=== PATIENT | male | born 1980 | race Caucasian/White ===

== ENCOUNTER 2023-03-22 14:52 | Emergency (ER) | payer MEDICAID, SELFPAY ==
[2023-03-22 15:01] VITALS: BP 127/87; BP 132/101; PULSE 103; PULSE 98; RESP 18; TEMP 36.4; O2SAT 98; O2SAT 99; BMI 27.7
--- NOTE | 2023-03-22 15:08 | PC.NURSE ---
security at bedside doing pt place change roof bolter. pt belongs placed in decon.
--- NOTE | 2023-03-22 15:11 | PC.NURSE ---
security at bedside. pt refusing chnage over.
--- NOTE | 2023-03-22 15:13 | PC.NURSE ---
provider at bedside discussing pt care.
--- NOTE | 2023-03-22 15:15 | ED_ITS ---
HPI - Overdose General Chief Complaint: Overdose Stated Complaint: OD,NARCAN GIVEN W/GOOD RESULT PER EMS Time Seen by Provider: 03/22/23 15:11 Source: patient and family Mode of arrival: EMS Limitations: no limitations History of Present Illness HPI Narrative: Patient comes to the emergency room after accidentally overdosing. Patient states that he was at home, took a tablet of Percocet, he accidentally overdose. Patient was found by his , called EMS, they gave him 2 mg IM of Narcan, patient responded immediately. Patient arrives emergency room alert and oriented, states that he feels well, denies suicidal or homicidal ideation. Patient declining any further medical treatment. Related Data Allergies Allergy/AdvReac Type Severity Reaction Status Date / Time No Known Allergies Allergy Verified 03/22/23 15:06 Review of Systems Review of Systems: Constitutional : No Weight loss, No Fever, No Chills, No Night Sweats, No Fatigue, No Malaise ENT/Mouth : No Hearing loss, No Ear Pain, No Nasal Congestion, No Sinus Pain, No Hoarseness, No sore throat, No Rhinorrhea, No Swallowing Difficulty Eyes: No Eye Pain, No Swelling, No Redness, No Foreign Body, No Discharge, No Vision Changes Cardiovascular : No Chest Pain, No SOB, No Dyspnea on Exertion, No Orthopnea, No Edema, No Palpitations Respiratory : No Cough, No Sputum, No Wheezing, No Smoke Exposure, No Dyspnea Gastrointestinal : No Nausea, No Vomiting, No Diarrhea, No Constipation, No abdominal Pain, No Hematochezia, No Melena Genitourinary : no irregular bleeding, No Dysuria, No Urinary Frequency, No Hematuria, No Urinary Incontinence, No Urgency, No Flank Pain, No Urinary Flow Changes, No Hesitancy Musculoskeletal : No joint pain, No Myalgias, No Joint Swelling Skin : No Skin Lesions, No rash Neuro : No Weakness, No Numbness, No Paresthesias, No Loss of Consciousness, No Dizziness, No Headache Psych : No Anxiety/Panic, No Depression, No SI/HI/AH/VH, admits to using Percocet/heroin Heme/Lymph: No Bruising, No Bleeding,No Lymphadenopathy Endocrine : No Polyuria, No Polydipsia, No Temperature Intolerance PMFSH Past Medical History Medical History (Updated 03/22/23 @ 15:24 by Yari Redd MD) Opiate overdose Social History Social History Alcohol intake: never Smoked in Last 30 Days: No Use of substances other than those prescribed or required for medical reasons: Yes Substance Use Type: Heroin Physical Exam Vital Signs: Vital Signs: Last Vital Signs Temp 97.6 F 03/22/23 15:01 Pulse 103 H 03/22/23 15:01 Resp 18 03/22/23 15:01 BP 132/101 H 03/22/23 15:01 Pulse Ox 98 03/22/23 15:01 O2 Del Method Room Air 03/22/23 15:01 BMI result Body Mass Index 27.7 Const: Other: Appearance: Alert. Oriented X3. No acute distress. Eyes: Pupils equal, round and reactive to light. ENT: Pharynx normal. Neck: Normal inspection. Neck supple. No lymph nodes noted. No crepitus CVS: Normal heart rate and rhythm. Pulses normal. Normal S1 and S2 Respiratory: No respiratory distress. Breath sounds normal. No Wheezing. No r ales Abdomen: Soft and nontender. No rigidity. No distention. Skin: Skin warm and dry. Normal skin color. Normal skin turgor. Extremities: No lower extremity edema. No Lacerations. No Rash Neuro: Oriented X 3. No motor deficit. No sensory deficit. Moving all extremities. No slurred speech. CN 2 through 12 grossly intact Psych: calm, cooperative, normal affect Medical Decision Making Medical Decision Making MDM Narrative: -is alert and oriented x3, no acute distress, all of the vitals are stable. Completely clinically sober -patient declining any assistance. -discussed with the patient and his that the Narcan effect can wear off and patient may become unresponsive again. Patient is aware, still requesting to be discharged. -patient is not SI or HI, Section 12 and not indicated -Patient agreeable to take Narcan home. Differential Diagnosis Differential Diagnoses: The differential diagnosis associated with the presentation includes (Opiate overdose, polysubstance abuse) Discharge Plan Discharge Clinical Impression: Drug overdose Patient Disposition: Home, Self-Care Instructions: Adult Overdose (ED) Additional Instructions: Please follow-up with your primary care physician tomorrow. If you have any worsening or new symptoms, please return to the emergency room or call 911
[2023-03-22] MEDS: Naloxone HCl Nasal TAKE HOME 4 MG SPRAY 8 MG NOSTRILALT (15:38)
== END 2023-03-22 15:39 | disposition home or self-care (01) ==
LOC: HO.ED 15:33
PROVIDERS: Emergency Provider Emergency Medicine
DX: T40.2X1A Poisoning by other opioids, accidental (unintentional), initial encounter (principal); Y92.9 Unspecified place or not applicable; Z71.51 Drug abuse counseling and surveillance of drug abuser
CPT/HCPCS: 99284

== ENCOUNTER 2023-10-14 18:21 | Emergency (ER) | payer MEDICAID, SELFPAY ==
--- NOTE | ~2023-10-14 | CT_ITS ---
EXAMINATION: CT HEAD WITHOUT CONTRAST CLINICAL INFORMATION: Fall. Found unresponsive. COMPARISON: None available. TECHNIQUE: Contiguous axial imaging was performed from the skull base to vertex without intravenous administration of contrast. This CT examination was performed using dose optimization techniques as appropriate, variously including the following: *Automated exposure control *Adjustment of mA and/or kV according to patient size (this includes techniques or standardized protocols for targeted exams where dose is matched to indication/reason for exam; i.e. extremities or head) *Use of iterative reconstruction technique DLP: 776 mGy-cm FINDINGS: There is no evidence of an extra-axial collection. There is no evidence of intra or extra-axial hemorrhage. The ventricles and extra-axial CSF spaces are appropriate. Perdomo-white matter differentiation is normal. No mass, mass effect or infarct or infarct. Review of bone windows is normal. No skull fracture. Severe right maxillary and bilateral ethmoid sinus disease. CT/CT head/brain wo IV con IMPRESSION: No acute intracranial findings. Sinus disease.
[2023-10-14 18:37] VITALS: BP 150/100; BP 152/99; PULSE 86; PULSE 93; RESP 24; TEMP 36.6; O2SAT 94; O2SAT 98; BMI 34.6
--- NOTE | 2023-10-14 18:50 | ECG_ITS ---
Test Reason : OVERDOSE Blood Pressure : / mmHG Vent. Rate : 087 BPM Atrial Rate : 087 BPM P-R Int : 144 ms QRS Dur : 082 ms QT Int : 362 ms P-R-T Axes : 057 042 007 degrees QTc Int : 435 ms Normal sinus rhythm Normal ECG No previous ECGs available Referred By: Yari Redd Electronically Signed By:AYALA HINES
--- NOTE | 2023-10-14 18:51 | ED.OVERDOSE ---
HPI - Overdose General Chief Complaint: Overdose Stated Complaint: Suspected OD, now conscious, confused Time Seen by Provider: 10/14/23 18:40 Source: EMS Mode of arrival: EMS Limitations: altered mental status History of Present Illness HPI Narrative: Patient comes to the emergency room via EMS. According to EMS, a bystander called 911, patient was found unresponsive, with apneic breathing in a house complex porch. When EMS arrived, they gave him 8 mg of intranasal Narcan. Patient woke up. Patient very confused since then. Not answering questions appropriately. However, EMS reports that the patient said that he used 1 bag of heroin. At this time, patient saying random staff, not answering questions. Related Data Allergies Allergy/AdvReac Type Severity Reaction Status Date / Time No Known Allergies Allergy Verified 10/14/23 18:39 Review of Systems Review of Systems: Yes Unobtainable due to mental status PMFSH Past Medical History Medical History Opiate overdose Social History Social History Alcohol intake: never Smoked in Last 30 Days: No Use of substances other than those prescribed or required for medical reasons: Refusing to respond Substance Use Type: Heroin Advance Directives: No Advance Directives Information Provided: No Physical Exam Vital Signs: Vital Signs: Last Vital Signs Temp 97.8 F 10/14/23 18:37 Pulse 86 10/14/23 18:37 Resp 24 H 10/14/23 18:37 BP 152/99 H 10/14/23 18:37 Pulse Ox 94 10/14/23 18:37 O2 Del Method Room Air 10/14/23 18:37 BMI result Body Mass Index 34.6 Const: Other: Appearance: Alert. Very confused, not answering questions appropriately Eyes: Pupils equal, round and reactive to light. ENT: Pharynx normal. Neck: Normal inspection. Neck supple. No lymph nodes noted. No crepitus CVS: Normal heart rate and rhythm. Pulses normal. Normal S1 and S2 Respiratory: No respiratory distress. Breath sounds normal. No Wheezing. No rales Abdomen: Soft and nontender. No rigidity. No distention. Skin: Skin warm and dry. Normal skin color. Normal skin turgor. Extremities: No lower extremity edema. No Lacerations. No Rash Neuro: No slurred speech. CN 2 through 12 grossly intact Psych: calm, cooperative, seems confused Course Course Course Narrative: -patient's vitals are stable -all of patient's labs and imaging pending Medical Decision Making Medical Decision Making [facility] Narrative: -my interpretation of labs, hematology and chemistry do not show any significant abnormality, ETOH level negative. -at this time, 20:50, patient is awake, alert and oriented x3, calm, cooperative. Patient states that he did not use heroin, states that a friend gave him a tablet of Percocet which was probably laced with something else. Patient has been here before, and told the same story. -patient denies suicidal homicidal ideation -my interpretation of CT scan of the head: No intracranial bleed. Radiology report, no intra acute abnormality. -patient declined [facility] evaluation. -patient being discharged with home Narcan. -patient's mother is here to pick him up Differential Diagnosis Differential Diagnoses: The differential diagnosis associated with the presentation includes (Intracranial bleed, EtOH, polysubstance abuse) Admission/Observation Consideration of admission/observation: Escalation of care including admission/observation considered (Given patient's presentation, patient considered) Lab Data [facility] Lab Attestation statement: I reviewed the patient's lab results. 10/14/23 18:53 10/14/23 18:53 Labs: Lab Results 10/14/23 Range/Units 18:53 WBC 4.0 L (4.8-10.8) X10*3/uL RBC 5.36 (4.60-5.80) X10*6/uL Hgb 16.5 (14.0-18.0) g/dl Hct 47.4 (42.0-52.0) % MCV 88.4 (80.0-98.0) fL MCH 30.8 (27.0-33.0) pg MCHC 34.8 (31.0-36.0) g/dl RDW 12.0 (11.0-16.0) % Plt Count 206 (160-400) X10*3/uL MPV 9.3 L (9.4-12.4) fL Immature Gran % (Auto) 0.0 (0.0-0.4) % Neut % (Auto) 73.0 (45-73) % Lymph % (Auto) 18.9 L (20-40) % Shannon % (Auto) 7.4 (2-11) % Eos % (Auto) 0.5 (0-4) % Baso % (Auto) 0.2 (0-2) % Lymph # (Auto) 0.8 L (1.2-4.9) X10*3/uL Shannon # (Auto) 0.3 (0.1-1.2) X10*3/uL Eos # (Auto) 0.0 (0.0-0.4) X10*3/uL Baso # (Auto) 0.0 (0.0-0.2) X10*3/uL Abs Immat Gran (auto) 0.00 (0.00-0.03) X10*3/uL Absolute Neuts (auto) 2.9 (2.0-8.3) x10*3/uL Absolute Nucleated RBC 0.000 (0.0-0.012) X10*3/uL Nucleated RBC % (auto) 0.0 (0.0-0.2) /100WBC Sodium 142 (135-145) mmol/L Potassium 3.5 (3.3-5.1) mmol/L Chloride 103 (96-108) mmol/L Carbon Dioxide 27 (22-29) mmol/L Anion Gap 16 (12-20) BUN 8 L (9-16) mg/dL Creatinine 1.23 (0.5-1.4) mg/dL Estim Creat Clear Calc 94.9 Estimated GFR > 60 Random Glucose 163 H (60-115) mg/dL Calcium 9.1 (8.4-10.2) mg/dL Total Bilirubin 0.4 (0.0-1.0) mg/dL Direct Bilirubin 0.2 (0.0-0.5) mg/dL AST 19 (5-37) U/L ALT 28 (0-40) U/L Alkaline Phosphatase 100 (39-117) U/L Troponin I High Sens < 2.7 (<3.5-35.0) ng/L Total Protein 7.3 (6.5-8.0) g/dL Albumin 4.3 (3.5-5.0) g/dL Ethyl Alcohol < 10 mg/dL Independent Interpretation I performed an independent interpretation of an: CT Scan Radiology Impression Discussion of test interpretation with radiology: I have reviewed the radiologist's reading. Radiologist Impression: FINDINGS: There is no evidence of an extra-axial collection. There is no evidence of intra or extra-axial hemorrhage. The ventricles and extra-axial CSF spaces are appropriate. Perdomo-white matter differentiation is normal. No mass, mass effect or infarct or infarct. Review of bone windows is normal. No skull fracture. Severe right maxillary and bilateral ethmoid sinus disease. CT/CT head/brain wo IV con IMPRESSION: No acute intracranial findings. Sinus disease. Critical Care Time Critical Care Time Critical Care Time: Yes Total Critical Care Time: 35 Attestation: I have personally provided critical care time. Time includes review of lab data, radiology results, discussion with consultants, and monitoring for potential decompensation. Intervention performed as documented. Discharge Plan Discharge Clinical Impression: Opiate overdose Patient Disposition: Home, Self-Care Instructions: Adult Overdose (ED) Additional Instructions: Please follow-up with your primary care physician tomorrow. If you have any worsening or new symptoms, please return to the emergency room or call 911 Print Language: Citizen [place]
[2023-10-14 18:59] LABS: MANUAL DIFF FLAG NO
[2023-10-14 19:00] LABS: Basophils Percent Auto 0.2 % (0-2); Eosinophils Percent Auto 0.5 % (0-4); Hematocrit 47.4 % (42.0-52.0); Hemoglobin 16.5 g/dl (14.0-18.0); Lymphocytes Absolute Auto 0.8 X10*3/uL (1.2-4.9); Lymphocytes Percent Auto 18.9 % (20-40); Mean Corpuscular HGB Conc 34.8 g/dl (31.0-36.0); Mean Corpuscular Hemoglobin 30.8 pg (27.0-33.0); Mean Corpuscular Volume 88.4 fL (80.0-98.0); Mean Platelet Volume 9.3 fL (9.4-12.4); Monocytes Absolute Auto 0.3 X10*3/uL (0.1-1.2); Monocytes Percent Auto 7.4 % (2-11); Neutrophils Absolute Auto 2.9 x10*3/uL (2.0-8.3); Platelet Count 206 X10*3/uL (160-400); Red Blood Count 5.36 X10*6/uL (4.60-5.80)
[2023-10-14 19:17] LABS: Ethanol < 10 mg/dL
[2023-10-14 19:18] LABS: Alanine Aminotransferase 28 U/L (0-40); Albumin Level 4.3 g/dL (3.5-5.0); Alkaline Phosphatase 100 U/L (39-117); Anion Gap 16 (12-20); Aspartate Amino Transferase 19 U/L (5-37); Bilirubin Direct 0.2 mg/dL (0.0-0.5); Bilirubin Total 0.4 mg/dL (0.0-1.0); Blood Urea Nitrogen 8 mg/dL (9-16); Calcium 9.1 mg/dL (8.4-10.2); Carbon Dioxide 27 mmol/L (22-29); Chloride 103 mmol/L (96-108); Creatinine Clr Calc Pharmacy 94.9; Estimated Glomerular Filt Rate > 60; Glucose Random 163 mg/dL (60-115); Potassium 3.5 mmol/L (3.3-5.1); Sodium 142 mmol/L (135-145); Total Protein 7.3 g/dL (6.5-8.0)
[2023-10-14 19:36] LABS: Troponin-I High Sensitivity < 2.7 ng/L (<3.5-35.0)
--- NOTE | 2023-10-14 20:23 | PC.NURSE ---
trial ambulation of pt to bathroom, demonstrated steady gait, no issues, returned to stretcher with no complications.
[2023-10-14 21:29] VITALS: BP 130/96; PULSE 76; RESP 18; TEMP 36.8; O2SAT 94
== END 2023-10-14 21:30 | disposition home or self-care (01) ==
PROVIDERS: Emergency Provider Emergency Medicine
DX: T40.601A Poisoning by unspecified narcotics, accidental (unintentional), initial encounter (principal); R40.4 Transient alteration of awareness; Y92.9 Unspecified place or not applicable
CPT/HCPCS: 36415; 70450; 80048; 80076; 80307; 84484; 85025; 93005; 99284; 99285

== ENCOUNTER → 2023-10-14 18:50 | Outpatient (BNV) | payer MEDICAID, SELFPAY | PROVIDERS: Emergency Provider Emergency Medicine; Visit Provider Internal Medicine | DX: T50.901A Poisoning by unspecified drugs, medicaments and biological substances, accidental (unintentional), initial encounter (principal) | CPT/HCPCS: 93010 ==